=== PATIENT | male | born 1985 | race African-American/Black ===

== ENCOUNTER 2019-09-09 18:21 | Emergency (ER) | payer SELFPAY ==
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
--- NOTE | 2019-09-09 19:34 | CT ---
INDICATION: Pain. TECHNIQUE: CT head without IV contrast. FINDINGS: No intracranial hemorrhage, edema, or mass effect. Linear tubular shaped foci of high density between the frontal lobes are likely vascular structures. Remainder negative. Impression : No acute intracranial disease. Please note that all CT scans at this facility use dose modulation, iterative reconstruction, and/or weight-based dosing when appropriate to reduce radiation dose to as low as reasonably achievable. Dictated by Navi Corona MD @ Sep 09 2019 7:31PM Signed by Dr. Navi Corona @ Sep 09 2019 7:31PM
--- NOTE | 2019-09-09 19:36 | CR ---
INDICATION: Pain. TECHNIQUE: Three views right shoulder. FINDINGS: No acute fracture or dislocation in right shoulder. Mild degenerative changes in the right AC joint. Remainder negative. Dictated by Navi Corona MD @ Sep 09 2019 7:33PM Signed by Dr. Navi Corona @ Sep 09 2019 7:33PM
--- NOTE | 2019-09-09 19:38 | CT ---
INDICATION: Pain. TECHNIQUE: CT cervical spine without IV contrast including axial, coronal and sagittal images. FINDINGS: No acute fracture or subluxation in cervical spine. Trace amount of mucosal thickening in the right maxillary sinus. Mild cervical thoracic curve. Minimal mucus in the left sphenoid sinus. Remainder negative. IMPRESSION: No acute fracture or subluxation in cervical spine. Minimal inflammatory changes in the right maxillary and left sphenoid sinuses. Please note that all CT scans at this facility use dose modulation, iterative reconstruction, and/or weight-based dosing when appropriate to reduce radiation dose to as low as reasonably achievable. Dictated by Navi Corona MD @ Sep 09 2019 7:36PM Signed by Dr. Navi Corona @ Sep 09 2019 7:37PM
== END 2019-09-09 20:06 | disposition home or self-care (01) ==
LOC: MW.ED 18:21
DX: Z04.1 Encounter for examination and observation following transport accident (principal)
CPT/HCPCS: 70450; 70450-26; 72125; 72125-26; 73030-26-RT; 73030-RT; 99283; 99284-25